=== PATIENT | male | born 1955 | race African-American/Black ===

== ENCOUNTER 2024-03-30 09:10 | Emergency (ER) | payer OTHER ==
[~2024-03-30] VITALS: Ht 170.2 cm; Wt 70.0 kg
[2024-03-30 09:26] VITALS: O2SAT 99
[2024-03-30 09:57] VITALS: TEMP 98.5
[2024-03-30 10:50] LABS: HEMATOCRIT. 45.5 % (42.0-52.0); HEMOGLOBIN. 14.7 g/dL (14.0-18.0); MEAN CORPUSCULAR HEMOGLOBIN 27.9 pg (28.0-32.0); MEAN CORPUSCULAR HGB CONC 32.3 g/dL (31.0-37.0); MEAN CORPUSCULAR VOLUME 86.3 fL (80.0-94.0); RED BLOOD CELL COUNT 5.27 mill/uL (4.7-6.1); RED CELL DISTRIBUTION WIDTH 15.8 % (11.6-14.6); WHITE BLOOD COUNT 6.8 x1000/uL (4.5-11.0)
[2024-03-30 10:56] LABS: CHLORIDE 106 mEq/L (98-107); POTASSIUM 3.7 mEq/L (3.5-5.1); SODIUM 142 mEq/L (136-145)
[2024-03-30 10:57] LABS: CALCIUM 10.2 mg/dL (8.7-10.4); CARBON DIOXIDE 31 mEq/L (21-32)
[2024-03-30] MEDS: SODIUM CHLORIDE 0.9% 1,000 ML IV ONE (10:59)
[2024-03-30 11:02] LABS: GLUCOSE 99 mg/dL (70-105); UREA NITROGEN BLOOD 11 mg/dL (9-23)
[2024-03-30 11:05] LABS: DIFFERENTIAL COMMENT 1
[2024-03-30 11:14] LABS: CLARITY URINE CLEAR (CLEAR); COLOR URINE YELLOW (YELLOW); GLUCOSE URINE NEGATIVE (NEGATIVE); KETONES URINE NEGATIVE (NEGATIVE); LEUKOCYTE ESTERASE URINE NEGATIVE (NEGATIVE); NITRITE URINE NEGATIVE (NEGATIVE); OCCULT BLOOD URINE NEGATIVE (NEGATIVE); PROTEIN URINE NEGATIVE (NEGATIVE); SPECIFIC GRAVITY URINE 1.007 (1.005-1.030); UROBILINOGEN URINE 0.2 E.U./dL (0.2-1.0)
[2024-03-30 11:15] LABS: TROPONIN I HIGH SENSITIVITY 105 ng/L (3.0-53)
[2024-03-30] MEDS: ASPIRIN 81MG TABLET PO NR (12:00)
[2024-03-30 12:44] LABS: PLATELET ESTIMATE NORMAL
[2024-03-30 12:45] LABS: PLATELET 190 x1000/uL (130-400)
[2024-03-30] MEDS ORDERED: LORAZEPAM 0.5MG TABLET PO PRN (15:15)
[2024-03-30] MEDS ORDERED: CLONIDINE 0.1MG TABLET PO PRN (15:15)
[2024-03-30] MEDS ORDERED: IPRATROPIUM/ALBUTEROL 0.5-3(2.5)MG/3ML NEB HHN PRN (15:15)
[2024-03-30] MEDS ORDERED: ACETAMINOPHEN 325MG TABLET PO PRN (15:15)
[2024-03-30] MEDS ORDERED: GUAIFENESIN 200MG/10ML SUGAR FREE UDC PO PRN (15:15)
[2024-03-30] MEDS ORDERED: DOCUSATE SODIUM 100MG CAPSULE PO PRN (15:15)
[2024-03-30] MEDS ORDERED: ONDANSETRON HCL 4MG/2ML INJ IV PRN (15:15)
[2024-03-30] MEDS: HYDRALAZINE HCL 25MG TABLET PO SCH (15:45)
[2024-03-30 16:15] LABS: TROPONIN I HIGH SENSITIVITY 117 ng/L (3.0-53)
[2024-03-30 16:17] VITALS: BP 167/99; PULSE 76; RESP 21
== END 2024-03-30 17:39 | disposition left against medical advice (07) ==
LOC: ER 09:10 → EDBEDREQTM 13:00 → EDBEDREQ 13:00 → CANBEDREQ 17:37 → ER 17:39
DX: I24.9 Acute ischemic heart disease, unspecified (principal); I10 Essential (primary) hypertension; E11.9 Type 2 diabetes mellitus without complications; J45.909 Unspecified asthma, uncomplicated
CPT/HCPCS: 99285; 96360; 71045; 80048; 81003; 83880; 83930; 83935; 85025; 85379; 84484; 36415; 93005; J7030